=== PATIENT | female | born 1980 | race Caucasian/White ===

== ENCOUNTER 2018-01-01 08:36 | Inpatient (IN) | payer OTHER ==
[~2018-01-01] VITALS: Ht 170.2 cm; Wt 58.0 kg
[2018-01-01 08:43] VITALS: BP 126/72; PULSE 69; RESP 16; TEMP 98.2; O2SAT 100
--- NOTE | 2018-01-01 09:14 | PD ---
HPI Chief Complaint: Dizziness Time Seen by Provider: 09:14 Travel History International Travel<30 days: No Contact w/Intl Traveler<30days: No Traveled to known affect area: No History of Present Illness HPI 37-year-old female was at work this morning when she felt some tingling and pain down her right arm. 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 She says that she knew what she had to say but the words were coming out wrong. Happened at 8:15 AM and lasted for about 15 minutes. After that her speech started to come back normal but she started getting a dull headache. Right now she says she just feels exhausted. Never had this happen before. Patient is a smoker. She is not on any medications. She does not have a primary care physician. She's not had a regular physical exam and blood work for many years. Patient had her tubal ligation and does not think that she could be . Vital signs were stable. Shift chest pain or syncopal episode. Patient denies having any sleep deprivation or excessive stress in her life. Patient denies drinking alcohol or doing any drugs. [facility] Past Medical History Narrative Medical List of her past medical, surgical, social and family history is reviewed from the nursing note. ?: Not LMP: 12/11/17 : 2 Para: 2 Tubal Ligation: Yes Social History Alcohol Use: Yes (OCC) Tobacco Use: Yes Substance Use: No Allergies-Medications (Allergen,Severity, Reaction): Coded Allergies: No Known Allergies (Verified Allergy, Unknown, 01/01/18) Comments No known drug allergies. Reported Meds & Prescriptions Reported Meds & Active Scripts Active Narrative Medication List of her home medications reviewed from the nursing note. Review of Systems Except as stated in HPI: all other systems reviewed are Neg Neurologic: Positive: Other (expressive aphasia) Physical Exam Narrative GENERAL: Awake, alert, anxious SKIN: Focused skin assessment warm/dry. HEAD: Atraumatic. Normocephalic. EYES: Pupils equal and round. No scleral icterus. No injection or drainage. Xanthelasma ENT: No nasal bleeding or discharge. Mucous membranes pink and moist. NECK: Trachea midline. No JVD. CARDIOVASCULAR: Regular rate and rhythm. No murmur appreciated. RESPIRATORY: No accessory muscle use. Clear to auscultation. Breath sounds equal bilaterally. GASTROINTESTINAL: Abdomen soft, non-tender, nondistended. Hepatic and splenic margins not palpable. MUSCULOSKELETAL: No obvious deformities. No clubbing. No cyanosis. No edema. NEUROLOGICAL: Awake and alert. No obvious cranial nerve deficits. Motor grossly within normal limits. Normal speech. PSYCHIATRIC: Appropriate mood and affect; insight and judgment normal. Data Data Last Documented VS Vital Signs Date Time Temp Pulse Resp B/P (MAP) Pulse Ox O2 Delivery O2 Flow Rate FiO2 01/01/18 10:07 65 17 101/64 (76) 100 Room Air 01/01/18 08:43 98.2 Orders Orders Electrocardiogram (01/01/18 09:50) Prothrombin Time / Inr (Pt) (01/01/18 09:50) Complete Blood Count With Diff (01/01/18 09:50) Basic Metabolic Panel (Bmp) (01/01/18 09:50) Creatine Kinase (Cpk) (01/01/18 09:50) Drug Screen, Random Urine (01/01/18 09:50) Troponin I (01/01/18 09:50) Ct Brain W/O Iv Contrast(Rout) (01/01/18 09:50) Chest, Single Ap (01/01/18 09:50) Ecg Monitoring (01/01/18 09:50) Iv Access Insert/Monitor (01/01/18 09:50) Oximetry (01/01/18 09:50) Sodium Chloride 0.9% Flush (Ns Flush) (01/01/18 10:00) Ed Urine Pregnancytest Poc (01/01/18 09:50) Admit Order (Ed Use Only) (01/01/18 11:37) Aspirin (Aspirin) (01/01/18 11:45) Labs Laboratory Tests Test 01/01/18 09:45 01/01/18 10:00 White Blood Count 6.1 TH/MM3 Red Blood Count 4.06 MIL/MM3 Hemoglobin 13.4 GM/DL Hematocrit 38.5 % Mean Corpuscular Volume 94.7 FL Mean Corpuscular Hemoglobin 33.0 PG Mean Corpuscular Hemoglobin Concent 34.8 % Red Cell Distribution Width 13.1 % Platelet Count 154 TH/MM3 Mean Platelet Volume 10.0 FL Neutrophils (%) (Auto) 63.7 % Lymphocytes (%) (Auto) 28.2 % Monocytes (%) (Auto) 6.7 % Eosinophils (%) (Auto) 0.8 % Basophils (%) (Auto) 0.6 % Neutrophils # (Auto) 3.9 TH/MM3 Lymphocytes # (Auto) 1.7 TH/MM3 Monocytes # (Auto) 0.4 TH/MM3 Eosinophils # (Auto) 0.1 TH/MM3 Basophils # (Auto) 0.0 TH/MM3 CBC Comment DIFF FINAL Differential Comment Prothrombin Time 9.6 SEC Prothromb Time International Ratio 0.9 RATIO Blood Urea Nitrogen 11 MG/DL Creatinine 0.81 MG/DL Random Glucose 86 MG/DL Calcium Level 8.8 MG/DL Sodium Level 141 MEQ/L Potassium Level 4.0 MEQ/L Chloride Level 108 MEQ/L Carbon Dioxide Level 24.5 MEQ/L Anion Gap 9 MEQ/L Estimat Glomerular Filtration Rate 79 ML/MIN Hemoglobin A1c 5.3 % Total Creatine Kinase 128 U/L Troponin I LESS THAN 0.02 NG/ML Human Chorionic Gonadotropin, Quant LESS THAN 1 MIU/ML Urine Opiates Screen NEG Urine Barbiturates Screen NEG Urine Amphetamines Screen NEG Urine Benzodiazepines Screen NEG Urine Cocaine Screen NEG Urine Cannabinoids Screen NEG MDM Medical Decision Making Medical Screen Exam Complete: Yes Emergency Medical Condition: Yes Medical Record Reviewed: Yes Interpretation(s) Twelve-lead EKG was reviewed by me. Normal sinus rhythm, normal axis, bradycardia, nonspecific ST-T wave changes. Heart rate of 51 bpm. Differential Diagnosis TIA, CVA Narrative Course 11:33 AM blood test results are within normal limit. CT scan is negative. I will give her one dose of aspirin. I discussed the case with the patient and I' m concerned about the transient symptoms that she had. In my opinion until proven otherwise these could be TIA. Patient does have risk factors in the form of smoking and unknown hypercholesterolemia. I proposed a 24-hour observation to rule out TIA with MRI and neurology consultation. Patient has agreed to this plan. Awaiting for the hospitalist to call back. Procedures EKG Prior to Arrival: No Diagnosis Primary Impression: TIA (transient ischemic attack) Qualified Codes: G45.9 - Transient cerebral ischemic attack, unspecified Admitting Information Admitting Physician Requests: Observation Scripts Aspirin (Aspirin) 81 Mg Chew 81 MG CHEW DAILY for Blood Clot Prevention, #30 TAB 0 Refills Prov: yLdia Fry 01/02/18 Quique Carrillo MD Jan 01, 2018 09:14
[2018-01-01] MEDS ORDERED: SODIUM CHLORIDE 0.9% FLUSH 10 ML FLUSH IVF PRN (10:00)
[2018-01-01 10:05] VITALS: O2SAT 97
--- NOTE | 2018-01-01 10:06 | RADRPT ---
EXAM DATE/TIME: 01/01/2018 10:01 [facility] COMPARISON: No previous studies available for comparison. INDICATIONS : Dizziness, right arm numbess, confusion, and slurred speech. MEDICAL HISTORY : None. SURGICAL HISTORY : Tubal ligation. ENCOUNTER: Initial ACUITY: 1 day PAIN SCORE: 0/10 LOCATION: Bilateral chest FINDINGS: A single view of the chest demonstrates the lungs to be symmetrically aerated without evidence of mas s, infiltrate or effusion. The cardiomediastinal contours are unremarkable. Osseous structures are intact. CONCLUSION: No acute disease. Mart Meadows MD FACR on January 01, 2018 at 10:04 Board Certified Radiologist. This report was verified electronically.
[2018-01-01 10:07] VITALS: BP 101/64; PULSE 65; RESP 17; O2SAT 100
[2018-01-01 10:25] LABS: AUTOMATED NEUTROPHIL # 3.9 TH/MM3 (1.8-7.7); BASOPHIL % 0.6 % (0.0-2.0); EOSINOPHIL # 0.1 TH/MM3 (0-0.4); EOSINOPHIL % 0.8 % (0.0-4.0); HEMATOCRIT 38.5 % (35.0-46.0); HEMOGLOBIN 13.4 GM/DL (11.6-15.3); LYMPH % 28.2 % (9.0-44.0); LYMPHOCYTE # 1.7 TH/MM3 (1.0-4.8); MEAN CELL VOLUME 94.7 FL (80.0-100.0); MEAN CORPUSCULAR HGB CONC 34.8 % (32.0-36.0); MONO % 6.7 % (0.0-8.0); MONOCYTE # 0.4 TH/MM3 (0-0.9); NEUT % 63.7 % (16.0-70.0); PLATELET COUNT 154 TH/MM3 (150-450); RED BLOOD COUNT 4.06 MIL/MM3 (4.00-5.30); RED CELL DISTRIBUTION WIDTH 13.1 % (11.6-17.2); WHITE BLOOD COUNT 6.1 TH/MM3 (4.0-11.0)
--- NOTE | 2018-01-01 10:31 | RADRPT ---
EXAM DATE/TIME: 01/01/2018 10:23 [facility] COMPARISON: No previous studies available for comparison. INDICATIONS : Dysphasia. RADIATION DOSE: 35.90 CTDIvol (mGy) MEDICAL HISTORY : None SURGICAL HISTORY : Tubal ligation. ENCOUNTER: Initial ACUITY: 1 day PAIN SCALE: 0/10 LOCATION: cranial TECHNIQUE: Multiple contiguous axial images were obtained of the head. Using automated exposure control and adj ustment of the mA and/or kV according to patient size, radiation dose was kept as low as reasonably a chievable to obtain optimal diagnostic quality images. DICOM format image data is available electro nically for review and comparison. FINDINGS: CEREBRUM: The ventricles are normal for age. No evidence of midline shift, mass lesion, hemorrhage or acute in farction. No extra-axial fluid collections are seen. POSTERIOR FOSSA: The cerebellum and brainstem are intact. The 4th ventricle is midline. The cerebellopontine angle i s unremarkable. EXTRACRANIAL: The visualized portion of the orbits is intact. SKULL: The calvaria is intact. No evidence of skull fracture. CONCLUSION: Normal examination. Carlos Garner MD on January 01, 2018 at 10:29 Board Certified Radiologist. This report was verified electronically.
[2018-01-01 10:34] LABS: INTERNATIONAL NORMALIZED RATIO 0.9 RATIO; PROTHROMBIN TIME - PATIENT 9.6 SEC (9.8-11.6)
[2018-01-01 10:43] LABS: BICARBONATE 24.5 MEQ/L (21.0-32.0); CALCIUM 8.8 MG/DL (8.5-10.1); CHLORIDE 108 MEQ/L (98-107); CREATININE 0.81 MG/DL (0.50-1.00); GLOMERULAR FILTRATION RATE 79 ML/MIN (>89); GLUCOSE,RANDOM 86 MG/DL (74-106); SODIUM (NA) 141 MEQ/L (136-145)
[2018-01-01 10:53] LABS: BLOOD UREA NITROGEN 11 MG/DL (7-18); TROPONIN I LESS THAN 0.02 NG/ML (0.02-0.05)
[2018-01-01] MEDS ORDERED: ENALAPRILAT 1.25 MG/ML VIAL IV PUSH PRN (11:45)
[2018-01-01] MEDS ORDERED: NALOXONE HCL 0.4 MG/ML AMP IV PUSH PRN (11:45)
[2018-01-01] MEDS ORDERED: ASPIRIN 325 MG TAB PO ONE (11:45)
[2018-01-01] MEDS ORDERED: MAGNESIUM HYDROXIDE SUSP 30 ML CUP PO PRN (11:45)
[2018-01-01] MEDS ORDERED: ACETAMINOPHEN 325 MG TAB PO PRN (11:45)
[2018-01-01] MEDS ORDERED: SODIUM CHLORIDE 0.9% FLUSH 10 ML FLUSH IV FLUSH PRN (11:45)
[2018-01-01] MEDS ORDERED: ONDANSETRON HCL 4 MG/2 ML VIAL IVP PRN (11:45)
--- NOTE | 2018-01-01 11:55 | HHI.HP ---
HPI Service CP Hospitalists Primary Care Physician No Primary Care Physician Admission Diagnosis TIA Chief Complaint: transient tingling right arm difficulty speeching and headache Travel History International Travel<30 Days: No Contact w/Intl Traveler <30 Da: No Traveled to Known Affected Are: No History of Present Illness This is a 37-year-old female who denies prior medical history or any daily medications. Patient admits that she does not follow with a primary care. Patient was at work this morning when she felt some tingling and pain down her right arm. 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 She says that she knew what she had to say but the words were coming out wrong. This happened at 8:15 AM and lasted for about 15 minutes. After that her speech started to come back normal but she started getting a dull headache. Right now she says she just feels exhausted, no other residual symptoms. Patient denies LOC, loss of bowel or bladder control during the incident. Never had this happen before. Patient is a smoker. Patient denies chest pain, SOB, fevers, chills, N/V or syncopal episode. Patient denies having any sleep deprivation or excessive stress in her life. Patient denies drinking alcohol or illicit drug use today. Patient's family member reports that patient had migraine faints spells as a child last episode 16 years ago. Patient denies any history of seizures. Review of Systems Constitutional: COMPLAINS OF: Fatigue, DENIES: Fever, Chills Eyes: DENIES: Blurred vision, Diplopia Respiratory: DENIES: Cough, Shortness of breath Cardiovascular: DENIES: Chest pain, Dyspnea on Exertion, Lower Extremity Edema Neurologic: COMPLAINS OF: Headache, Localized weakness, Speech Problems, DENIES : Abnormal gait Psychiatric: DENIES: Anxiety, Confusion, Depression Past Family Social History Past Medical History denies prior medical history Past Surgical History tubal ligation Reported Medications No Active Prescriptions or Reported Medications Allergies: Coded Allergies: No Known Allergies (Verified Allergy, Unknown, 01/01/18) Family History reviewed and noncontributory Social History Social ETOH use tobacco use 1 PPD denies illicit drug use Physical Exam Vital Signs Vital Signs Date Time Temp Pulse Resp B/P (MAP) Pulse Ox O2 Delivery O2 Flow Rate FiO2 01/01/18 10:07 65 17 101/64 (76) 100 Room Air 01/01/18 10:05 97 Room Air 01/01/18 08:43 98.2 69 16 126/72 (90) 100 Physical Exam GENERAL: This is a well-nourished, well-developed patient, in no apparent distress. SKIN: No rashes, ecchymoses or lesions. Cool and dry. HEAD: Atraumatic. Normocephalic. No temporal or scalp tenderness. EYES: Extraocular motions intact. No scleral icterus. No injection or drainage. CARDIOVASCULAR: Regular rate and rhythm RESPIRATORY: Clear to auscultation. Breath sounds equal bilaterally. GASTROINTESTINAL: Abdomen soft, non-tender, nondistended. MUSCULOSKELETAL: Extremities without clubbing, cyanosis, or edema. No joint tenderness, effusion, or edema noted. No calf tenderness. Negative Homans sign bilaterally. NEUROLOGICAL: Awake and alert. Cranial nerves II through XII intact. Motor and sensory grossly within normal limits. Five out of 5 muscle strength in all muscle groups. Normal speech. Laboratory Laboratory Tests Test 01/01/18 09:45 01/01/18 10:00 White Blood Count 6.1 Red Blood Count 4.06 Hemoglobin 13.4 Hematocrit 38.5 Mean Corpuscular Volume 94.7 Mean Corpuscular Hemoglobin 33.0 Mean Corpuscular Hemoglobin Concent 34.8 Red Cell Distribution Width 13.1 Platelet Count 154 Mean Platelet Volume 10.0 Neutrophils (%) (Auto) 63.7 Lymphocytes (%) (Auto) 28.2 Monocytes (%) (Auto) 6.7 Eosinophils (%) (Auto) 0.8 Basophils (%) (Auto) 0.6 Neutrophils # (Auto) 3.9 Lymphocytes # (Auto) 1.7 Monocytes # (Auto) 0.4 Eosinophils # (Auto) 0.1 Basophils # (Auto) 0.0 CBC Comment DIFF FINAL Differential Comment Prothrombin Time 9.6 Prothromb Time International Ratio 0.9 Blood Urea Nitrogen 11 Creatinine 0.81 Random Glucose 86 Calcium Level 8.8 Sodium Level 141 Potassium Level 4.0 Chloride Level 108 Carbon Dioxide Level 24.5 Anion Gap 9 Estimat Glomerular Filtration Rate 79 Total Creatine Kinase 128 Troponin I LESS THAN 0.02 Urine Opiates Screen NEG Urine Barbiturates Screen NEG Urine Amphetamines Screen NEG Urine Benzodiazepines Screen NEG Urine Cocaine Screen NEG Urine Cannabinoids Screen NEG Result Diagram: 01/01/1845 01/01/1845 Imaging Last Impressions Head CT 01/01/18949 Signed Impressions: Service Date/Time: Monday, January 01, 2018 10:23 - CONCLUSION: Normal examination. Carlos Garner MD Chest X-Ray 01/01/18949 Signed Impressions: Service Date/Time: Monday, January 01, 2018 10:01 - CONCLUSION: No acute disease. Mart Meadows MD FACR Caprini VTE Risk Assessment Caprini VTE Risk Assessment: No/Low Risk (score <= 1) Caprini Risk Assessment Model Point Value = 1 Point Value = 2 Point Value = 3 Point Value = 5 Age 41-60 Minor surgery BMI > 25 kg/m2 Swollen legs Varicose veins or History of unexplained or recurrent spontaneous Oral contraceptives or hormone replacement Sepsis (< 1 month) Serious lung disease, including pneumonia (< 1 month) Abnormal pulmonary function Acute myocardial infarction Congestive heart failure (< 1 month) History of inflammatory bowel disease Medical patient at bed rest Age 61-74 Arthroscopic surgery Major open surgery (> 45 min) Laparoscopic surgery (> 45 min) Malignancy Confined to bed (> 72 hours) Immobilizing plaster cast Central venous access Age >= 75 History of VTE Family history of VTE Factor V Leiden Prothrombin [id number] Lupus anticoagulant Anticardiolipin antibodies Elevated serum homocysteine Heparin-induced thrombocytopenia Other congenital or acquired thrombophilia Stroke (< 1 month) Elective arthroplasty Hip, pelvis, or leg fracture Acute spinal cord injury (< 1 month) Prophylaxis Regimen Total Risk Factor Score Risk Level Prophylaxis Regimen 0-1 Low Early ambulation 2 Moderate Order ONE of the following: *Sequential Compression Device (SCD) *Heparin 5000 units SQ BID 3-4 Higher Order ONE of the following medications: *Heparin 5000 units SQ TID *Enoxaparin/Lovenox 40 mg SQ daily (WT < 150 kg, CrCl > 30 mL/min) *Enoxaparin/Lovenox 30 mg SQ daily (WT < 150 kg, CrCl > 10-29 mL/min) *Enoxaparin/Lovenox 30 mg SQ BID (WT < 150 kg, CrCl > 30 mL/min) AND/OR *Sequential Compression Device (SCD) 5 or more Highest Order ONE of the following medications: *Heparin 5000 units SQ TID (Preferred with Epidurals) *Enoxaparin/Lovenox 40 mg SQ daily (WT < 150 kg, CrCl > 30 mL/min) *Enoxaparin/Lovenox 30 mg SQ daily (WT < 150 kg, CrCl > 10-29 mL/min) *Enoxaparin/Lovenox 30 mg SQ BID (WT < 150 kg, CrCl > 30 mL/min) AND *Sequential Compression Device (SCD) Assessment and Plan Problem List: (1) TIA (transient ischemic attack) ICD Codes: G45.9 - Transient cerebral ischemic attack, unspecified Status: Acute Plan: Admit for observation symptoms have resolved CT head conclusion normal exam CXR conclusion No acute disease telemetry Neuro checks Holter monitor EEG Echo MRI brain MRA brain US carotid arteries Consult neurology Lipid profile, Hgb IVF ASA given in ER and continued daily Bedside swallow eval PT/speech requested Assessment and Plan Patient examined. Assessment and plan formulated with Lydia Fry PA-C. I agree with the above. Problem Qualifiers (1) TIA (transient ischemic attack): Qualified Codes: G45.9 - Transient cerebral ischemic attack, unspecified Lydia Fry Jan 01, 2018 11:55 Leif Bartlett DO Jan 04, 2018 12:18
--- NOTE | 2018-01-01 13:46 | RADRPT ---
EXAM DATE/TIME: 01/01/2018 12:53 [facility] COMPARISON: No previous studies available for comparison. INDICATIONS : Right sided weakness. Aphasia. TIA. MEDICAL HISTORY : None. SURGICAL HISTORY : Tubal ligation. ENCOUNTER: Subsequent ACUITY: 1 day PAIN SCORE: 0/10 LOCATION: head. Please note a normal MRA of the brain does not entirely exclude the possibility of a small aneurysm, nor the possibility of distal intracranial vessel disease. TECHNIQUE: 3D time of flight MRA was performed. Source images, multiplanar STS MIP, and 3D volume MIP reconstru ctions were reviewed. FINDINGS: There is excellent visualization of the major intracranial arteries out to the second-order branch ve ssels. There is no evidence for aneurysm, vessel truncation or stenosis, and no evidence for vascula r malformation. CONCLUSION: Normal examination. Terry Khan MD on January 01, 2018 at 13:43 Board Certified Radiologist. This report was verified electronically.
--- NOTE | 2018-01-01 14:06 | PD.CONS ---
History of Present Illness Service Neurology Consult Requested By Medicine Reason for Consult TIA Primary Care Physician No Primary Care Physician History of Present Illness History of Present Illness 37-year-old female admitted to the hospital with acute onset right upper extremity paresthesias and expressive aphasia. The patient states that she went to work in her usual state of health this morning. While she was at work she began feeling as though her right hand and forearm were swelling, however there was no physical change. She then felt somewhat clumsy in the right hand which is her dominant hand. She started having difficulty remembering names, subsequently using inappropriate words while speaking. She does note that she was able to write, however she noted in one chart she had written a customer name and a stream of letters after which did not make any sense. For these reasons she came into the hospital for evaluation. She states that the worst of her symptoms lasted approximately 15 minutes, however she has had several subsequent smaller episodes since that time. She takes no medications, including any anticoagulation. The patient is a half pack to 1 pack per day smoker. She denies any known personal history of hypercoagulability, but notes that her grandfather had multiple strokes and myocardial infarctions during his lifetime. She denies any known family history of epilepsy or multiple sclerosis. In discussing further with the patient she does recall having multiple episodes between the ages of 10 and 13 years where she passed out. In her early 20s she had an episode at [facility] and subsequently was diagnosed as seizure activity. The patient has never been on any antiepileptic agents, and has not had a similar episode since her early 20s. Past Family Social History Past Medical History Possible childhood seizures Past Surgical History tubal ligation Reported Medications No Active Prescriptions or Reported Medications Allergies: Coded Allergies: No Known Allergies (Verified Allergy, Unknown, 01/01/18) Family History Grandfather had multiple strokes and multiple heart attacks Social History Social ETOH use tobacco use 1 PPD denies illicit drug use Laboratory Laboratory Tests Test 01/01/18 09:45 01/01/18 10:00 White Blood Count 6.1 Red Blood Count 4.06 Hemoglobin 13.4 Hematocrit 38.5 Mean Corpuscular Volume 94.7 Mean Corpuscular Hemoglobin 33.0 Mean Corpuscular Hemoglobin Concent 34.8 Red Cell Distribution Width 13.1 Platelet Count 154 Mean Platelet Volume 10.0 Neutrophils (%) (Auto) 63.7 Lymphocytes (%) (Auto) 28.2 Monocytes (%) (Auto) 6.7 Eosinophils (%) (Auto) 0.8 Basophils (%) (Auto) 0.6 Neutrophils # (Auto) 3.9 Lymphocytes # (Auto) 1.7 Monocytes # (Auto) 0.4 Eosinophils # (Auto) 0.1 Basophils # (Auto) 0.0 CBC Comment DIFF FINAL Differential Comment Prothrombin Time 9.6 Prothromb Time International Ratio 0.9 Blood Urea Nitrogen 11 Creatinine 0.81 Random Glucose 86 Calcium Level 8.8 Sodium Level 141 Potassium Level 4.0 Chloride Level 108 Carbon Dioxide Level 24.5 Anion Gap 9 Estimat Glomerular Filtration Rate 79 Total Creatine Kinase 128 Troponin I LESS THAN 0.02 Urine Opiates Screen NEG Urine Barbiturates Screen NEG Urine Amphetamines Screen NEG Urine Benzodiazepines Screen NEG Urine Cocaine Screen NEG Urine Cannabinoids Screen NEG Result Diagram: 01/01/1845 01/01/18944 Imaging Last Impressions Head CT 01/01/18949 Signed Impressions: Service Date/Time: Monday, January 01, 2018 10:23 - CONCLUSION: Normal examination. Carlos Garner MD Chest X-Ray 01/01/18949 Signed Impressions: Service Date/Time: Monday, January 01, 2018 10:01 - CONCLUSION: No acute disease. Mart Meadows MD FACR (Jose Boothe) Review of Systems Constitutional: Negative except HPI Eye: Negative Except HPI ENMT: Negative except HPI Respiratory: Negative except HPI Cardiovascular: Negative except HPI Gastrointestinal: Negative except HPI Agusto/Lymph: Negative except HPI Musculoskeletal: Negative except HPI Neurologic: Negative except HPI Psychiatric: Negative except HPI All other ROS: ROS reviewed as documented in chart (Jose Boothe) Past Family Social History Allergies: Coded Allergies: No Known Allergies (Verified Allergy, Unknown, 01/01/18) Active Ordered Medications Current Medications Medications (Trade) Dose Ordered Sig/Nenita Route Start Time Stop Time Status Last Admin (NS Flush) 2 ml UNSCH PRN IVF 01/01/18 10:00 (NS Flush) 2 ml UNSCH PRN IV FLUSH 01/01/18 11:45 (NS Flush) 2 ml BID IV FLUSH 01/01/18 21:00 (Tylenol) 650 mg Q4H PRN PO 01/01/18 11:45 (Zofran Inj) 4 mg Q6H PRN IVP 01/01/18 11:45 (Narcan Inj) 0.4 mg UNSCH PRN IV PUSH 01/01/18 11:45 (Milk Of Magnesia Liq) 30 ml Q12H PRN PO 01/01/18 11:45 (Vasotec Inj) 1.25 mg Q4H PRN IV PUSH 01/01/18 11:45 (Aspirin) 325 mg DAILY PO 01/01/18 11:45 UNV Potassium Chloride/Sodium Chloride 1,000 ml @ 100 mls/hr Q10H IV 01/01/18 11:45 (Jose Boothe) Exam I&O / VS Vital Signs Date Time Temp Pulse Resp B/P (MAP) Pulse Ox O2 Delivery O2 Flow Rate FiO2 01/01/18 10:07 65 17 101/64 (76) 100 Room Air 01/01/18 10:05 97 Room Air 01/01/18 08:43 98.2 69 16 126/72 (90) 100 General: Alert and Oriented, No acute distress Eye: PERRL Respiratory: Non-labored respirations, Symmetrical expansion Cardiology: Normal rate Musculoskeletal: ROM Neurologic: Alert, Oriented, Normal sensory, Normal DTR's Psychiatric: Cooperative, Appropriate mood & affect, Normal judgement Exam Comments Subtle disconjugate gaze, visual [place] full, no dysmetria, right lower extremity was sluggish on strength testing but no overt focal weakness. Speech was fluent (Jose Boothe) Review/Management Diagnosis/Plan: (1) TIA (transient ischemic attack) ICD Codes: G45.9 - Transient cerebral ischemic attack, unspecified Status: Acute Plan: TIA vs partial seizure CT was NAICP MRI/MRA brain CUS Would get EEG Aspirin for now Telemetry, Holter May need hypercoag workup (Jose Boothe) Addendum to Inpatient Note Addendum Reason: Additional Documentation Additional Information MD addendum: pt was seen and examined along side the PA. agree with assessment and plan for workup of tia vs sz -obtain mri,mra cow,echo,cus,flp,hga1c.will add eeg given her possible hx of sz as a child. If evaluation is negative will need a holter and possible neelima with hypercoagulable workup as an outpt. okay to stay on a baby asa qd. (Dulce Maria Alexis MD) Problem Qualifiers (1) TIA (transient ischemic attack): Qualified Codes: G45.9 - Transient cerebral ischemic attack, unspecified Jose Boothe Jan 01, 2018 14:06 Dulce Maria Alexis MD Jan 01, 2018 15:34
[2018-01-01 14:10] VITALS: BP 117/69; PULSE 70; RESP 18; TEMP 98.4; O2SAT 100
--- NOTE | 2018-01-01 14:25 | RADRPT ---
EXAM DATE/TIME: 01/01/2018 12:53 [facility] COMPARISON: No previous studies available for comparison. INDICATIONS : Right sided weakness. Aphasia. TIA. MEDICAL HISTORY : None. SURGICAL HISTORY : Tubal ligation. ENCOUNTER: Subsequent ACUITY: 1 day PAIN SCORE: 0/10 LOCATION: head. TECHNIQUE: Multiplanar, multisequence MRI of the brain was performed without contrast. FINDINGS: CEREBRUM: The ventricles are normal for age. No evidence of midline shift, mass lesion, hemorrhage or acute in farction. No extraaxial fluid collections are seen. The pituitary gland and suprasellar cistern are normal in configuration. WHITE MATTER: No significant signal abnormalities are seen in the white matter. POSTERIOR FOSSA: The cerebellum and brainstem are intact. The 4th ventricle is midline. The cerebellopontine angle is unremarkable. The cerebellar tonsils are normal in position. DIFFUSION IMAGING: No focal areas of restricted diffusion are seen. No evidence of acute infarction. EXTRACRANIAL: The visualized portions of the orbits and paranasal sinuses are unremarkable. CONCLUSION: Negative MRI of the brain for acute ischemic event. There is no restricted diffusion . There is no periventricular white matter changes. Mart Meadows MD FACR on January 01, 2018 at 14:19 Board Certified Radiologist. This report was verified electronically.
[2018-01-01] MEDS: 1/2 NS + KCL 20 MEQ INJ 1,000 ML IV SCH (15:00)
[2018-01-01 15:08] LABS: HEMOGLOBIN A1C 5.3 % (4.3-6.0)
[2018-01-01 15:12] VITALS: BP 105/66; PULSE 67; RESP 20; TEMP 98.4; O2SAT 100
[2018-01-01] MEDS: NICOTINE 14 MG/24 HR PATCH T-DERMAL SCH (16:12)
--- NOTE | 2018-01-01 16:42 | RADRPT ---
EXAM DATE/TIME: 01/01/2018 16:16 [facility] COMPARISON: No previous studies available for comparison. INDICATIONS : Transient ischemic attack. MEDICAL HISTORY : . SURGICAL HISTORY : Tubal ligation. ENCOUNTER: Initial ACUITY: 1 day PAIN SCORE: 0/10 LOCATION: Bilateral neck PEAK SYSTOLIC VELOCITIES (cm/sec): ICA/CCA RATIO: Right: 1.1 Left: 0.9 ICA: Right: 137.3 Left: 113.4 CCA: Right: 122.1 Left: 122.6 ECA: Right: 75.3 Left: 66.6 VERTEBRAL: Right: 70.7 antegrade Left: 76.9 antegrade Elevated flow velocities and ICA/CCA ratios have been found to correlate with increased degrees of vessel stenosis, calculated as percentage of diameter relative to a normal segment of distal ICA/CCA FINDINGS: RIGHT CAROTID: No significant stenosis is visualized. The waveforms are within normal limits. LEFT CAROTID: No significant stenosis is visualized. The waveforms are within normal limits. VERTEBRAL ARTERIES: Antegrade flow is seen in both vertebral arteries. MISCELLANEOUS: None. CONCLUSION: No evidence of flow-limiting carotid stenosis. Terry Khan MD on January 01, 2018 at 16:40 Board Certified Radiologist. This report was verified electronically.
--- NOTE | 2018-01-01 17:47 | EKG ---
Date Performed: 01/01/2018 Time Performed: 10:18:26 PTAGE: 37 years EKG: SINUS BRADYCARDIA LOW QRS VOLTAGE IN PRECORDIAL LEADS POSSIBLE RIGHT VENTRICULAR CONDUCTION DELAY BORDERLINE ECG NO PREVIOUS TRACING DOCTOR: Livier Thomason Interpretating Date/Time 01/01/2018 17:45:40
[2018-01-01] MEDS: SODIUM CHLORIDE 0.9% FLUSH 10 ML FLUSH IV FLUSH SCH (20:24)
[2018-01-01 21:21] VITALS: BP_SYST 91; BP_SYST 92; BP_SYST 94; BP_DIAS 49; BP_DIAS 53; BP_DIAS 57; PULSE 74; RESP 17; TEMP 98.1; O2SAT 98
[2018-01-01 22:19] LABS: FOLATE 16.3 NG/ML (3.1-17.5); FREE T4 1.11 NG/DL (0.76-1.46)
[2018-01-02] MEDS: 1/2 NS + KCL 20 MEQ INJ 1,000 ML IV SCH ×2 (00:31→07:45)
[2018-01-02 01:38] VITALS: PULSE 78
[2018-01-02 01:49] VITALS: BP 101/64; PULSE 72; RESP 17; TEMP 98.1; O2SAT 97
[2018-01-02 04:55] VITALS: BP 96/47; PULSE 84; RESP 17; TEMP 98.1; O2SAT 97
[2018-01-02 07:32] LABS: AUTOMATED NEUTROPHIL # 2.8 TH/MM3 (1.8-7.7); BASOPHIL % 0.6 % (0.0-2.0); EOSINOPHIL # 0.1 TH/MM3 (0-0.4); EOSINOPHIL % 2.3 % (0.0-4.0); HEMATOCRIT 35.6 % (35.0-46.0); HEMOGLOBIN 12.4 GM/DL (11.6-15.3); LYMPH % 32.6 % (9.0-44.0); LYMPHOCYTE # 1.6 TH/MM3 (1.0-4.8); MEAN CELL VOLUME 94.6 FL (80.0-100.0); MEAN CORPUSCULAR HEMOGLOBIN 32.9 PG (27.0-34.0); MEAN CORPUSCULAR HGB CONC 34.7 % (32.0-36.0); MEAN PLATELET VOLUME 9.7 FL (7.0-11.0); MONO % 7.5 % (0.0-8.0); MONOCYTE # 0.4 TH/MM3 (0-0.9); PLATELET COUNT 137 TH/MM3 (150-450); RED BLOOD COUNT 3.76 MIL/MM3 (4.00-5.30); WHITE BLOOD COUNT 4.8 TH/MM3 (4.0-11.0)
[2018-01-02 08:05] VITALS: BP_SYST 103; BP_SYST 126; BP_SYST 133; BP_DIAS 63; BP_DIAS 83; BP_DIAS 84; PULSE 72; RESP 18; TEMP 97.7; O2SAT 97
[2018-01-02 08:19] LABS: BICARBONATE 19.8 MEQ/L (21.0-32.0); CALCIUM 7.9 MG/DL (8.5-10.1); CHOLESTEROL/ HDL RATIO 2.21 RATIO; CREATININE 0.69 MG/DL (0.50-1.00); HDL CHOLESTEROL 56.8 MG/DL (40.0-60.0)
[2018-01-02] MEDS ORDERED: ASPIRIN 325 MG TAB PO SCH (09:00)
[2018-01-02] MEDS: SODIUM CHLORIDE 0.9% FLUSH 10 ML FLUSH IV FLUSH SCH (09:00)
[2018-01-02] MEDS ORDERED: REMOVE OLD PATCH T-DERMAL SCH (09:00)
--- NOTE | 2018-01-02 09:36 | HHI.PR ---
Subjective Remarks Reports feeling well would like to be DC'd Objective Vitals Vital Signs Date Time Temp Pulse Resp B/P (MAP) Pulse Ox O2 Delivery O2 Flow Rate FiO2 01/02/18 08:05 97.7 72 18 103/63 (76) 97 126/84 (98) 133/83 (100) 01/02/18 04:55 98.1 84 17 96/47 (63) 97 01/02/18 01:49 98.1 72 17 101/64 (76) 97 01/02/18 01:38 78 01/01/18 21:21 98.1 74 17 91/49 (63) 98 92/53 (66) 94/57 (69) 01/01/18 15:12 98.4 67 20 105/66 (79) 100 01/01/18 14:10 98.4 70 18 117/69 (85) 100 01/01/18 14:09 01/01/18 10:07 65 17 101/64 (76) 100 Room Air 01/01/18 10:05 97 Room Air Result Diagram: 01/02/18 0700 01/02/18 0700 Other Results Laboratory Tests Test 01/01/18 09:45 01/01/18 10:00 01/01/18 21:09 01/02/18 07:00 White Blood Count 6.1 TH/MM3 4.8 TH/MM3 Red Blood Count 4.06 MIL/MM3 3.76 MIL/MM3 Hemoglobin 13.4 GM/DL 12.4 GM/DL Hematocrit 38.5 % 35.6 % Mean Corpuscular Volume 94.7 FL 94.6 FL Mean Corpuscular Hemoglobin 33.0 PG 32.9 PG Mean Corpuscular Hemoglobin Concent 34.8 % 34.7 % Red Cell Distribution Width 13.1 % 13.0 % Platelet Count 154 TH/MM3 137 TH/MM3 Mean Platelet Volume 10.0 FL 9.7 FL Neutrophils (%) (Auto) 63.7 % 57.0 % Lymphocytes (%) (Auto) 28.2 % 32.6 % Monocytes (%) (Auto) 6.7 % 7.5 % Eosinophils (%) (Auto) 0.8 % 2.3 % Basophils (%) (Auto) 0.6 % 0.6 % Neutrophils # (Auto) 3.9 TH/MM3 2.8 TH/MM3 Lymphocytes # (Auto) 1.7 TH/MM3 1.6 TH/MM3 Monocytes # (Auto) 0.4 TH/MM3 0.4 TH/MM3 Eosinophils # (Auto) 0.1 TH/MM3 0.1 TH/MM3 Basophils # (Auto) 0.0 TH/MM3 0.0 TH/MM3 CBC Comment DIFF FINAL DIFF FINAL Differential Comment Prothrombin Time 9.6 SEC Prothromb Time International Ratio 0.9 RATIO Blood Urea Nitrogen 11 MG/DL 10 MG/DL Creatinine 0.81 MG/DL 0.69 MG/DL Random Glucose 86 MG/DL 86 MG/DL Calcium Level 8.8 MG/DL 7.9 MG/DL Sodium Level 141 MEQ/L 141 MEQ/L Potassium Level 4.0 MEQ/L 4.5 MEQ/L Chloride Level 108 MEQ/L 115 MEQ/L Carbon Dioxide Level 24.5 MEQ/L 19.8 MEQ/L Anion Gap 9 MEQ/L 6 MEQ/L Estimat Glomerular Filtration Rate 79 ML/MIN 95 ML/MIN Hemoglobin A1c 5.3 % Total Creatine Kinase 128 U/L Troponin I LESS THAN 0.02 NG/ML Human Chorionic Gonadotropin, Quant LESS THAN 1 MIU/ML Urine Opiates Screen NEG Urine Barbiturates Screen NEG Urine Amphetamines Screen NEG Urine Benzodiazepines Screen NEG Urine Cocaine Screen NEG Urine Cannabinoids Screen NEG Ammonia 38 MCMOL/L Vitamin B12 Level 315 PG/ML Folate 16.3 NG/ML Free Thyroxine 1.11 NG/DL Thyroid Stimulating Hormone 3rd Gen 2.080 uIU/ML Triglycerides Level 70 MG/DL Cholesterol Level 126 MG/DL LDL Cholesterol 55 MG/DL HDL Cholesterol 56.8 MG/DL Cholesterol/HDL Ratio 2.21 RATIO Imaging Last Impressions Head CT 01/01/18949 Signed Impressions: Service Date/Time: Monday, January 01, 2018 10:23 - CONCLUSION: Normal examination. Carlos Garner MD Chest X-Ray 01/01/18949 Signed Impressions: Service Date/Time: Monday, January 01, 2018 10:01 - CONCLUSION: No acute disease. Mart Meadows MD FACR Objective Remarks GENERAL: This is a well-nourished, well-developed patient, in no apparent distress. CARDIOVASCULAR: Regular rate and rhythm RESPIRATORY: Clear to auscultation. Breath sounds equal bilaterally. GASTROINTESTINAL: Abdomen soft, non-tender, nondistended. Normal active bowel sounds MUSCULOSKELETAL: Extremities without clubbing, cyanosis, or edema. NEURO: Alert & Oriented x4 to person, place, time, situation. Moves all ext x4 A/P Problem List: (1) TIA (transient ischemic attack) ICD Codes: G45.9 - Transient cerebral ischemic attack, unspecified Status: Acute Plan: Admit for observation symptoms have resolved CT head: normal exam CXR: No acute disease telemetry Neuro checks Holter monitor EEG pending. Plan to DC once EEG complete Echo 01/02: The left ventricular systolic function is low normal with an estimated ejection fraction in the range of 50-55%. Trace mitral valve regurgitation. No aortic valve regurgitation. There is mild tricuspid valve regurgitation. The estimated pulmonary arterial pressure is 37__ mmHg. The pulmonary valve is not well visualized. MRI brain: Negative MRI of the brain for acute ischemic event. There is no restricted diffusion. There is no preventricular white matter changes MRA brain: Normal exam US carotid arteries: No evidence of flow limiting carotid stenosis Consult neurology, appreciate input. Recommending outpatient hypercoagulable workup and possible CATIE. Patient to follow up with neurology in 2 weeks. Lipid profile: Total cholesterol 126, triglycerides 70, LDL 55 HDL 56.8, Hgb 5.3 IVF 1 ASA given in ER and continued daily Bedside swallow eval completed PT: Recommend home with a PT speech requested Patient cleared for DC by Neurology. Patient to follow up with PCP in 1 week, follow up with neurology in 2 weeks. Patient also started on aspirin 81 mg daily. Assessment and Plan Patient examined. Assessment and plan formulated with Lydia Fry PA-C. I agree with the above. Problem Qualifiers (1) TIA (transient ischemic attack): Qualified Codes: G45.9 - Transient cerebral ischemic attack, unspecified Lydia Fry Jan 02, 2018 09:36 Leif Bartlett DO Jan 04, 2018 12:19
[2018-01-02] MEDS: NICOTINE 14 MG/24 HR PATCH T-DERMAL SCH (09:38)
[2018-01-02 12:17] VITALS: BP 119/68; PULSE 85; RESP 20; TEMP 98.3; O2SAT 100
--- NOTE | 2018-01-02 12:22 | HHI.PR ---
Subjective Remarks mild headache Objective Vital Signs Date Time Temp Pulse Resp B/P (MAP) Pulse Ox O2 Delivery O2 Flow Rate FiO2 01/02/18 08:05 97.7 72 18 103/63 (76) 97 126/84 (98) 133/83 (100) 01/02/18 04:55 98.1 84 17 96/47 (63) 97 01/02/18 01:49 98.1 72 17 101/64 (76) 97 01/02/18 01:38 78 01/01/18 21:21 98.1 74 17 91/49 (63) 98 92/53 (66) 94/57 (69) 01/01/18 15:12 98.4 67 20 105/66 (79) 100 01/01/18 14:10 98.4 70 18 117/69 (85) 100 01/01/18 14:09 I/O 01/01/18 01/01/18 01/01/18 01/02/18 01/02/18 01/02/18 07:00 15:00 23:00 07:00 15:00 23:00 Intake Total 600 ml Balance 600 ml Intake Oral 600 ml # Voids 4 Result Diagram: 01/02/18 0700 01/02/18 0700 Objective Remarks awake alert fluent perrla motor intact Assessment and Plan Assessment and Plan a/p tia vs sz vs migraine baby asa eeg echo can be sent home f/u with me in 2 wks Dulce Maria Alexis MD Jan 02, 2018 12:22
--- NOTE | 2018-01-02 12:31 | ECHRPT ---
Indication: cva/tia CONCLUSIONS Normal left ventricular size. The left ventricular systolic function is low normal with an estimated ejection fraction in the rang e of 50- 55%. Trace mitral valve regurgitation. No aortic valve regurgitation. There is mild tricuspid valve regurgitation. The estimated pulmonary arterial pressure is 37__ mmHg. The pulmonary valve is not well visualized. BP: / HR: Rhythm: MEASUREMENTS (Male / Female) Normal Values Technical Quality:Good 2D ECHO LV Diastolic Diameter PLAX 4.1 cm 4.2 - 5.9 / 3.9 - 5.3 cm LV Systolic Diameter PLAX 3.2 cm IVS Diastolic Thickness 0.8 cm 0.6 - 1.0 / 0.6 - 0.9 cm LVPW Diastolic Thickness 0.7 cm 0.6 - 1.0 / 0.6 - 0.9 cm LV Relative Wall Thickness 0.4 RV Internal Dim ED PLAX 2.4 cm M-MODE Aortic Root Diameter MM 3.1 cm LA Systolic Diameter MM 2.8 cm LA Ao Ratio MM 0.9 AV Cusp Separation MM 1.4 cm DOPPLER Mitral E Point Velocity 85.4 cm/s Mitral A Point Velocity 42.0 cm/s Mitral E to A Ratio 2.0 LV E' Lateral Velocity 20.5 cm/s Mitral E to LV E' Lateral Ratio 4.2 LV E' Septal Velocity 15.2 cm/s Mitral E to LV E' Septal Ratio 5.6 TR Peak Velocity 262.0 cm/s TR Peak Gradient 27.5 mmHg Right Atrial Pressure 10.0 mmHg Pulmonary Artery Systolic Pressu 37.5 mmHg Right Ventricular Systolic Press 37.5 mmHg FINDINGS LEFT VENTRICLE Normal left ventricular size. The left ventricular systolic function is low normal with an estimated ejection fraction in the rang e of 50- 55%. RIGHT VENTRICLE Normal right ventricular size and systolic function. LEFT ATRIUM The left atrial size is normal. RIGHT ATRIUM The right atrial size is normal. ATRIAL SEPTUM Normal atrial septal thickness without atrial level shunting by limited color doppler interrogation. AORTA The aortic root and proximal ascending aorta are normal in size on limited imaging. MITRAL VALVE Structurally normal mitral valve. Trace mitral valve regurgitation. AORTIC VALVE Trileaflet aortic valve. No aortic valve regurgitation. TRICUSPID VALVE Structurally normal tricuspid valve. There is mild tricuspid valve regurgitation. The estimated pulmonary arterial pressure is 37__ mmHg. PULMONARY VALVE The pulmonary valve is not well visualized. VESSELS The inferior vena cava is normal in size. PERICARDIUM No pericardial effusion. Livier Thomason MD, FACC (Electronically Signed) Final Date:02 January 2018 12:30
[2018-01-02] MEDS ORDERED: ASPI-516 CHEW (13:00)
--- NOTE | 2018-01-02 16:06 | MG ---
cc: Dulce Maria Alexis MD EEG #: [id number] Room G80 with photic stimulation done at the beginning. EEG is awake, drowsy, sleep. MRI is negative for anything acute. Admitted with right arm tingling, trouble speaking lasting for 15 minutes, possible TIA, headache, history of seizures as a teen, on aspirin, potassium, nicotine patch. DESCRIPTION OF RECORD: Patient has a background alpha 9 Hz, 20-40 mV, symmetrical background, well-organized. Photic stimulation done at the beginning of the recording shows a posterior driving response, there is no epileptiform features. IMPRESSION: Normal EEG. No epileptiform features. Clinical correlation. Dulce Maria Alexis MD DF/cc , 02:11 PM , 04:05 PM
--- NOTE | 2018-01-03 13:26 | HM ---
Date Performed: 01/01/2018 Time Performed: 17:21:00 HOOKUP DATE: 01/01/18 05:21:00 PM Fri ANALYSIS START TIME: 01/01/2018 5:26:00 PM ANALYSIS END TIME: 01/02/2018 2:36:37 PM PATIENT AGE: 37 PATIENT HEIGHT: 67 PATIENT WEIGHT: 127 DRUG LIST: Room # G-80 PATIENT DIAGNOSIS: TIA TEST NARRATIVE: The patient's average heart rate was 75 BPM. Heart rates greater than 120 B PM were noted 1% of the time. No episodes of bradycardia were noted. No pauses exceeding 2.0 sec onds were noted. 1 ventricular ectopics, which represented < 1% of the total beat count, were not ed. The highest ventricular ectopic frequency occurred from 01:00 PM to 02:00 PM Sat. During this t annie 1 VE(s) occurred. Ventricular ectopics were observed as 1 isolated beat(s) only. No couplets or runs were noted. 2 supraventricular ectopics, which represented < 1% of the total beat count, we re noted. The highest supraventricular ectopic frequency occurred from 09:00 PM to 10:00 PM Fri. Du ring this time 1 SVE(s) occurred. No episodes of ST depression (defined as -1.0 mm or more) were noted in channel 1. No episodes of ST depression (defined as -1.0 mm or more) were noted in channel 2. No episodes of ST depression (defined as -1.0 mm or more) were noted in channel 3. TEST INTERPRETATION: SINUS RYTHM AND SINUS TACHYCARDIA RARE ECTOPY Signed by : Manjinder Rajan
== END 2018-01-02 14:57 | disposition home or self-care (01) | DRG 69 ==
LOC: NEPC 08:36 → NEDA 11:38 → OBSVTOIN 11:40 → NEPGCP 13:21 → NEDA 14:30 → NEPGCP 14:32
PROVIDERS: ADMIT Hospitalist; ATTEND Hospitalist
DX: G45.9 Transient cerebral ischemic attack, unspecified (principal); F17.210 Nicotine dependence, cigarettes, uncomplicated
CPT/HCPCS: 70450; 70544; 70551; 71045; 80048; 80061; 80307; 82140; 82550; 82607; 82746; 83036; 84439; 84443; 84484; 84702; 84703; 85025; 85610; 86592; 93005; 93225; 93226; 93306; 93880; 95819; G9168-GN; G9169-GN; G9170-GN